=== PATIENT | female | born 1955 | race Caucasian/White ===

== ENCOUNTER → 2020-04-24 | Outpatient (CLI) | payer BC, OTHER ==
[~2020-04-24] MED LIST: ALPRAZOLAM 0.50.5 M1 PO; APPLE CIDER VI500 MG PO; ASPIRIN EC81 M1 PO; COLLAGEN HYDROLY1 GM PO; ESCITALOPRAM OX20 MG PO; LIPITOR 40 MG T40 M1 PO; METFORMIN HCL1000 MG PO; MULTI VITAMIN1 EACH PO; TURMERIC500 M2 PO; VITAMIN B-125000 MCG PO; VITAMIN D310 MC1 PO
--- NOTE | 2020-04-24 12:26 | EKG ---
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: AMRITA : 1955 Requested By: Colton Salas Order Number: [id number] MD: Felipe Davenport Measurements Intervals [place] Rate: 66 P: 30 [place]: 139 QRS: 0 QRSD: 89 T: 26 QT: 438 QTc: 459 Interpretive Statements Sinus rhythm RSR' in V1 or V2 Poor our progression Nonspecific ST-T wave change No previous ECG available for comparison Electronically Signed On 04-24-2020 12:26:14 CDT by Felipe Davenport [email or web address] <ELECTRONICALLY SIGNED> By: Felipe Davenport MD 04/24/20 1226 1037 [facility] Felipe Davenport MD /EPI
== END ==
LOC: CV 10:20
PROVIDERS: ATTEND Podiatrist Foot & Ankle Surgery
DX: Z01.818 Encounter for other preprocedural examination (principal)

== ENCOUNTER → 2020-04-24 | Outpatient (CLI) | payer BC, OTHER | LOC: LAB 10:26 | PROVIDERS: ATTEND Podiatrist Foot & Ankle Surgery | DX: Z01.812 Encounter for preprocedural laboratory examination (principal); Z20.828 Contact with and (suspected) exposure to other viral communicable diseases ==

== ENCOUNTER 2020-04-29 06:12 | Day surgery (SDC) | payer BC, OTHER ==
[~2020-04-29] VITALS: Ht 167.6 cm; Wt 98.4 kg
[2020-04-29 07:27] VITALS: BP 140/80
[2020-04-29 09:41] VITALS: BP 140/80
--- NOTE | 2020-05-01 16:06 | PATH ---
[facility] [address] [place] [address] PATHOLOGY RPT PROCEDURE Name: BOBBI LAU Room #: DEP [facility] M.R.#: [id number] Admission: 04/29/20 Date of : 57 Discharge: 04/29/20 Report #: [id number] Path Case #: [id number] [facility] Accession Number: [id number] . 01 Material submitted: . hallux - LEFT FOOT HALLUX RIGIDUS. Modifiers: left . 01 Clinical history: . LEFT FOOT PAIN, LEFT FOOT HALLUX RIGIDUS . 02 Diagnosis: Foot, left foot hallux rigidus: - Fragments of reactive chondro-osseous tissue along with regenerative changes, history of hallux rigidus. - Scant fragments of synovial tissue and fibrous tissue with chronic inflammation as well as reactive changes. (IUV:pit 05/01/2020) . QTP 05/01/2020 1423 Local . 02 Electronically signed: . Sujata Patterson MD, Pathologist NPI- [id number] . 01 Gross description: . The specimen is received in formalin, labeled "Bobbi Lau, left foot hallux rigidus". Received are multiple segments of yellow-elder bone measuring 4.1 x 3.6 x 0.8 cm in aggregate dimensions. The specimen is submitted representatively in cassette A1, following decalcification. (CAA; 04/30/2020) QA/[facility] 04/30/2020 1029 Local . 02 Pathologist provided ICD-10: M65.9, M79.672 . 02 CPT . 585171, 445257 Specimen Comment: A courtesy copy of this report has been sent to [phone] Specimen Comment: [phone] Specimen Comment: Report sent to / DR ELLISON Performed at: [address] [id number] MD Angel Solo MD Phone: [phone] Performed at: [address] [id number] PATHOLOGY RPT PROCEDURE Name: BOBBI LAU Room #: DEP [facility] Killian#: [id number] Admission: 04/29/20 Date of : 57 Discharge: 04/29/20 Report #: [id number] Path Case #: [id number] [address] [place] [address], [place] [id number] MD Sujata Patterson MD Phone: [phone]
== END 2020-04-29 10:10 | disposition home or self-care (01) ==
LOC: OR 06:12 → TBA 06:14 → OR 10:10
PROVIDERS: ATTEND Podiatrist Foot & Ankle Surgery
DX: M20.22 Hallux rigidus, left foot (principal); E78.00 Pure hypercholesterolemia, unspecified; F41.9 Anxiety disorder, unspecified; F32.9 Major depressive disorder, single episode, unspecified; Z98.890 Other specified postprocedural states; Z79.899 Other long term (current) drug therapy; Z87.891 Personal history of nicotine dependence
CPT/HCPCS: 50010; 50101; 50386; 50951; 56524; 56526; 57091; 57178; 62110; 62850; 70005